=== PATIENT | female | born 1965 | race Caucasian/White ===

== ENCOUNTER 2017-10-18 08:51 | Outpatient (RCR) | payer BC ==
[~2017-10-18 08:51] MED LIST: HYDROMORPHONE 2MG/ML INJ ONE
== END 2017-10-23 ==
LOC: OT 08:51
PROVIDERS: ATTEND Surgery Surgery of the Hand
DX: S52.531D Colles' fracture of right radius, subsequent encounter for closed fracture with routine healing (principal)
CPT/HCPCS: 97010 ×7; 97110 ×8; 97165; L3906

== ENCOUNTER 2017-11-03 08:00 | Outpatient (RCR) | payer BC | END 2017-11-23 | LOC: OT 08:00 | PROVIDERS: ATTEND Surgery Surgery of the Hand | DX: S52.531D Colles' fracture of right radius, subsequent encounter for closed fracture with routine healing (principal); M25.631 Stiffness of right wrist, not elsewhere classified | CPT/HCPCS: 97139 ==

== ENCOUNTER 2017-12-12 08:00 | Outpatient (RCR) | payer BC | END 2017-12-21 | LOC: OT 08:00 | PROVIDERS: ATTEND Surgery Surgery of the Hand | DX: G56.01 Carpal tunnel syndrome, right upper limb (principal) ==

== ENCOUNTER 2018-01-10 08:57 | Outpatient (RCR) | payer BC | END 2018-01-21 | LOC: OT 08:57 | PROVIDERS: ATTEND Surgery Surgery of the Hand | DX: G56.01 Carpal tunnel syndrome, right upper limb (principal); G56.11 Other lesions of median nerve, right upper limb; T84.84XA Pain due to internal orthopedic prosthetic devices, implants and grafts, initial encounter ==